=== PATIENT | female | born 1970 | race Caucasian/White ===

== ENCOUNTER 2020-07-11 19:00 | Emergency (ER) | payer OTHER ==
[2020-07-11 19:14] VITALS: BP 140/57; PULSE 78; TEMP 98.5; BMI 24.7
[2020-07-11] MEDS ORDERED: IBUPROFEN 600 MG TABLET (FP) PO ONE ×2 (19:23→19:30)
[2020-07-11] MEDS ORDERED: DIPHTH,PERTUSS(ACELL),TET 0.5 ML DISP.SYRIN IM ONE ×2 (21:42→21:45)
== END 2020-07-11 21:49 | disposition home or self-care (01) ==
LOC: FER 19:00
PROC: 3E0234Z Introduction of Serum, Toxoid and Vaccine into Muscle, Percutaneous Approach (ICD-10-PCS; principal; 2020-07-11)
DX: S52.532A Colles' fracture of left radius, initial encounter for closed fracture (principal)
CPT/HCPCS: 73110-TC-LT-FY; 73130-TC-LT-FY; 90715; 99284-25